=== PATIENT | male | born 1985 | race Caucasian/White ===

== ENCOUNTER 2023-03-24 02:47 | Emergency (ER) | payer MEDICAID ==
[~2023-03-24] VITALS: Ht 177.8 cm; Wt 79.4 kg
[2023-03-24 03:12] VITALS: BP 134/87
--- NOTE | 2023-03-24 04:03 | NUR ---
PT TO ROOM 9
--- NOTE | 2023-03-24 04:08 | NUR ---
37YR OLD MALE BIB SELF C/O POSS ABCESS TO UPPER GENTIAL AREA. PT STATES +SWELLING +REDDENED 8/10 PAIN LEVEL. PT IS A&OX4 . STARTED X2DAYS AGO. DENIES DRAINAGE . NKDA NO MED HX
[2023-03-24] MEDS ORDERED: ACET-10509 PO (05:19)
[2023-03-24] MEDS ORDERED: SULF-59 PO (05:19)
[2023-03-24 05:23] VITALS: BP 134/87
--- NOTE | 2023-03-24 05:26 | NUR ---
Patient discharged with v/s stable. Written and verbal after care instructions given and explained. Patient verbalized understanding. Ambulatory with steady gait. All questions addressed prior to discharge. Advised to follow up with PMD.
== END 2023-03-24 05:26 | disposition home or self-care (01) ==
LOC: MED 02:47
DX: L02.31 Cutaneous abscess of buttock (principal); Z79.899 Other long term (current) drug therapy
CPT/HCPCS: 99283

== ENCOUNTER 2023-04-23 01:38 | Emergency (ER) | payer MEDICAID ==
[~2023-04-23] VITALS: Ht 177.8 cm; Wt 80.7 kg
[~2023-04-23 01:38] MED LIST: ACET-10509 PO; SULF-59 PO
[2023-04-23 01:42] VITALS: BP 115/69
--- NOTE | 2023-04-23 01:52 | NUR ---
pt. to bed 07
--- NOTE | 2023-04-23 02:48 | NUR ---
Patient being evaluated by physician at bedside.
[2023-04-23] MEDS ORDERED: cefTRIAXone 1,000 MG in DEXT 5% MINI-BAG PLUS 50 ML IV ONE (02:55)
[2023-04-23] MEDS ORDERED: ONDANSETRON 4 MG/2 ML VIAL IVP ONE (02:55)
[2023-04-23] MEDS ORDERED: NACL 0.9% 2,000 ML IV SCH (02:55)
[2023-04-23] MEDS ORDERED: cefTRIAXone 1,000 MG VIAL ONE (03:11)
--- NOTE | 2023-04-23 03:33 | NUR ---
37YR OLD MALE BIB SELF C/O GEN BODY PAIN V/D X2DAYS. SX STARTED 2 DAYS AGO. UNABLE TO KEEP FLUIDS DOWN. LOWER ABD PAIN /CRAMPING /. PT STATES HAVING A FEVER AT HOME. PT IS A&OX4 ON BEDSIDE [employer]. HOB ELEVATED. NKDA NO MED HX
--- NOTE | 2023-04-23 03:41 | NUR ---
BLOOD COLLECTED AND SENT
[2023-04-23 03:56] LABS: BASOPHILS % (AUTO) 0.1 % (0.0-2.0); EOSINOPHILS # (AUTO) 0.1 K/uL (0-0.4); EOSINOPHILS % (AUTO) 0.6 % (0.0-4.0); HEMATOCRIT 41.5 % (36-52); HEMOGLOBIN 13.6 g/dL (12.0-18.0); LYMPHOCYTES # (AUTO) 0.6 K/uL (2.0-11.5); LYMPHOCYTES % (AUTO) 6.3 % (20.5-51.1); MEAN CORPUSCULAR HEMOGLOBIN 28 pg (27-31); MEAN CORPUSCULAR HGB CONC 33 g/dL (33-37); MONOCYTES # (AUTO) 0.6 K/uL (0.8-1.0); NEUTROPHILS # (AUTO) 8.5 K/uL (1.8-7.7); PLATELET COUNT (AUTO) 339 K/uL (140-450); RED BLOOD CELL COUNT(AUTO) 4.82 MIL/uL (4.20-6.10); RED CELL DISTRIBUTION WIDTH 13.4 % (11.6-13.7); WHITE BLOOD COUNT (AUTO) 9.8 K/uL (4.8-10.8)
[2023-04-23 04:36] LABS: ALBUMIN 3.5 g/dL (3.4-5.0); ANION GAP 12.6 (8-16); ASPARTATE AMINOTRANSFERASE 29 U/L (15-37); CARBON DIOXIDE 27.2 mmol/L (21-32); CHLORIDE 102 mmol/L (98-107); CREATININE 0.8 mg/dL (0.6-1.3); GFR ARICAN-AMERICAN 141 mL/min (>90); GLUCOSE 100 mg/dL (74-106); LIPASE 75 U/L (73-393); POTASSIUM 3.8 mmol/L (3.5-5.1); SODIUM SERUM 138 mmol/L (136-145); TOTAL BILIRUBIN 0.4 mg/dL (0.0-1.0); UREA NITROGEN, BLOOD 11 mg/dL (7-18)
[2023-04-23] MEDS ORDERED: KETOROLAC 15 MG/ML VIAL IVP ONE (04:40)
[2023-04-23] MEDS ORDERED: DOXY-690 PO (05:38)
[2023-04-23] MEDS ORDERED: CEPH-588 PO (05:38)
[2023-04-23] MEDS ORDERED: ACET-10509 PO (05:39)
[2023-04-23 06:13] VITALS: BP 116/55
== END 2023-04-23 06:12 | disposition home or self-care (01) ==
LOC: MED 01:38
DX: R11.2 Nausea with vomiting, unspecified (principal); R19.7 Diarrhea, unspecified; J18.9 Pneumonia, unspecified organism; L03.116 Cellulitis of left lower limb; Z79.899 Other long term (current) drug therapy; Z20.822 Contact with and (suspected) exposure to COVID-19
CPT/HCPCS: 71045; 80053; 82550; 83605; 83690; 84484; 85025; 87040; 87426; 87804; 93005; 96365; 96375; 99291; J0696; J1885; J2405; J7030